=== PATIENT | female | born 1980 | race Caucasian/White ===

== ENCOUNTER 2025-04-02 03:37 | Emergency (ER) | payer OTHER ==
[~2025-04-02] VITALS: Ht 162.6 cm; Wt 65.9 kg
[2025-04-02 04:48] VITALS: BP 129/80
== END 2025-04-02 04:51 | disposition other institution, planned readmission (95) ==
LOC: ED 03:37
DX: F41.9 Anxiety disorder, unspecified (principal)
CPT/HCPCS: 99283